=== PATIENT | female | born 1970 | race Two or more races ===

== ENCOUNTER 2022-05-25 13:58 | Emergency (ER) | payer SELFPAY ==
[~2022-05-25] VITALS: Ht 167.6 cm; Wt 59.9 kg
[2022-05-25 14:02] VITALS: BP 146/88
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
--- NOTE | 2022-05-25 15:49 | NUR ---
DR ALEENA MARQUEZ PT
[2022-05-25] MEDS ORDERED: ZOLP5TAB1 PO (15:59)
[2022-05-25 16:15] VITALS: BP 146/88
--- NOTE | 2022-05-25 16:16 | NUR ---
Patient discharged with v/s stable. Written and verbal after care instructions given and explained. Patient alert, oriented and verbalized understanding of instructions. Ambulatory with steady gait. All questions addressed prior to discharge. ID band removed. Patient advised to follow up with PMD. Rx of FRANKI given. Patient educated on indication of medication including possible reaction and side effects. Opportunity to ask questions provided and answered.
== END 2022-05-25 16:08 | disposition home or self-care (01) ==
LOC: MED 13:58
DX: F41.0 Panic disorder [episodic paroxysmal anxiety] (principal); G47.00 Insomnia, unspecified
CPT/HCPCS: 99283